=== PATIENT | female | born 1970 | race Caucasian/White ===

== ENCOUNTER 2024-07-26 19:21 | Emergency (ER) | payer SELFPAY ==
[~2024-07-26] VITALS: Ht 160 cm; Wt 68.0 kg
[~2024-07-26 19:21] MED LIST: ALPR2TAB2 PO
[2024-07-26 20:27] VITALS: BP 161/81; TEMP 98.5; O2SAT 98
[2024-07-26] MEDS ORDERED: IBUP-1957 PO (21:00)
[2024-07-26] MEDS ORDERED: KETOROLAC TROMETHAMINE INJ 30 MG/ML VIAL ONE (21:21)
[2024-07-26] MEDS: KETOROLAC TROMETHAMINE INJ 30 MG/ML VIAL IM ONE (21:22)
== END 2024-07-26 21:34 | disposition home or self-care (01) ==
LOC: ER 19:23
DX: M54.2 Cervicalgia (principal); M54.9 Dorsalgia, unspecified; F41.9 Anxiety disorder, unspecified; F17.200 Nicotine dependence, unspecified, uncomplicated; Z79.1 Long term (current) use of non-steroidal anti-inflammatories (NSAID)
CPT/HCPCS: 99283; 96372; J1885

== ENCOUNTER 2025-06-17 19:05 | Emergency (ER) | payer OTHER ==
[~2025-06-17] VITALS: Ht 162.6 cm; Wt 68.0 kg
[~2025-06-17 19:05] MED LIST changes: +IBUP-1957 PO
[2025-06-17 19:37] LABS: PLATELET COUNT (AUTO) 646 K/uL (150-450); RED BLOOD CELL COUNT(AUTO) 3.59 MIL/uL (4.0-5.2); RED CELL DISTRIBUTION WIDTH 14.0 % (11.5-15.0); WHITE BLOOD COUNT (AUTO) 6.7 K/uL (4.3-11.0)
[2025-06-17 19:46] LABS: CALCIUM, SERUM 9.4 mg/dL (8.5-10.1); CREATININE 0.7 mg/dL (0.6-1.3); SODIUM SERUM 138 mmol/L (136-145); UREA NITROGEN, BLOOD 16 mg/dL (7-18)
[2025-06-17 19:58] LABS: NT-PRO BNP 63 pg/mL (0-125)
[2025-06-17] MEDS ORDERED: CLINDAMYCIN 900 MG/6 ML VIAL ONE (20:13)
[2025-06-17] MEDS: CLINDAMYCIN IV RTU IN D5W 900 MG/50 ML PIGGYBACK IV ONE (20:22)
[2025-06-17] MEDS: KETOROLAC TROMETHAMINE INJ 30 MG/ML VIAL IV ONE (20:22)
[2025-06-17] MEDS ORDERED: IOHEXOL-350 100 ML VIAL IV ONE (21:25)
[2025-06-17] MEDS ORDERED: IV NS 0.9% 250 ML IV ONE (21:25)
[2025-06-17 22:17] VITALS: BP 101/66; TEMP 97.3; O2SAT 98
== END 2025-06-17 22:21 | disposition home or self-care (01) ==
LOC: ER 19:07
DX: L03.114 Cellulitis of left upper limb (principal); R07.81 Pleurodynia; E87.6 Hypokalemia; F17.200 Nicotine dependence, unspecified, uncomplicated; F41.9 Anxiety disorder, unspecified; R06.02 Shortness of breath; Z79.1 Long term (current) use of non-steroidal anti-inflammatories (NSAID); Z90.49 Acquired absence of other specified parts of digestive tract; Z90.710 Acquired absence of both cervix and uterus
CPT/HCPCS: 99285; 96365; 71275; 71045; 96375; 93005; 85025; 80048; 85378; 36415; 84484 ×2; 83880; J1885; J3490; J7050; Q9967

== ENCOUNTER 2025-07-18 20:33 | Emergency (ER) | payer OTHER ==
[~2025-07-18] VITALS: Ht 162.6 cm; Wt 72.6 kg
[2025-07-18 22:37] VITALS: BP 106/69; TEMP 97.9; O2SAT 98
[2025-07-18] MEDS ORDERED: CEPH-570 PO (22:43)
[2025-07-18] MEDS ORDERED: SULF1TAB48 PO (22:43)
== END 2025-07-18 22:59 | disposition home or self-care (01) ==
LOC: ER 20:43
DX: S40.262A Insect bite (nonvenomous) of left shoulder, initial encounter (principal); F41.9 Anxiety disorder, unspecified; F17.200 Nicotine dependence, unspecified, uncomplicated; Z79.1 Long term (current) use of non-steroidal anti-inflammatories (NSAID); Z90.710 Acquired absence of both cervix and uterus; Z90.49 Acquired absence of other specified parts of digestive tract; W57.XXXA Bitten or stung by nonvenomous insect and other nonvenomous arthropods, initial encounter; Y93.89 Activity, other specified; Y92.89 Other specified places as the place of occurrence of the external cause; Y99.8 Other external cause status